=== PATIENT | male | born 1960 | race Caucasian/White ===

== ENCOUNTER 2018-03-13 01:29 | Emergency (ER) | payer MEDICARE, OTHER ==
[~2018-03-13] VITALS: Ht 177.8 cm; Wt 81.0 kg
[2018-03-13] MEDS ORDERED: LORazepam 2 mg/ml vial IV ONE (01:40)
[2018-03-13] MEDS ORDERED: hydrALAZINE 20mg/ml inj. IV ONE (01:40)
[2018-03-13] MEDS ORDERED: ondansetron/PF 4mg/2ml inj IV ONE (03:05)
[2018-03-13] MEDS: labetalol 20mg/4ml (5mg/ml) syringe IV PRN ×3 (03:10→03:47)
[2018-03-13 03:13] LABS: ANION GAP 10 (8-16); BILIRUBIN,TOTAL 0.2 MG/DL (0.1-1.0); BLOOD UREA NITROGEN 16 MG/DL (7-18); CALCIUM 8.4 MG/DL (8.5-10.1); CHLORIDE 107 MMOL/L (99-107); CREATININE 0.89 MG/DL (0.60-1.10); GLUCOSE 114 MG/DL (70-104); POTASSIUM 3.3 MMOL/L (3.5-5.1); SODIUM 140 MMOL/L (135-145); TOTAL CARBON DIOXIDE 22.7 MMOL/L (24-32); eGFR 87 ML/MIN
[2018-03-13 03:14] LABS: ALANINE AMINOTRANSFERASE 48 U/L (12-78); ALBUMIN 3.7 G/DL (3.4-5.0); ALKALINE PHOSPHATASE 95 IU/L (46-116); ASPARTATE AMINO TRANSFERASE 29 U/L (10-37); TOTAL PROTEIN 7.3 G/DL (6.4-8.2)
[2018-03-13 03:21] LABS: MAGNESIUM 2.1 MG/DL (1.5-2.4)
[2018-03-13] MEDS ORDERED: potassium Cl 20 mEq SR tablet PO ONE (03:35)
[2018-03-13 04:02] VITALS: BP 125/85
== END 2018-03-13 04:05 | disposition home or self-care (01) ==
LOC: ER 01:29
DX: I10 Essential (primary) hypertension (principal)
CPT/HCPCS: 36415; 80053; 83735; 83880; 84484; 96374; 96375; 99285; J0360; J2060; J2405; J3490

== ENCOUNTER 2018-03-13 21:35 | Emergency (ER) | payer MEDICARE, OTHER ==
[~2018-03-13] VITALS: Ht 152.4 cm; Wt 74.9 kg
[2018-03-13] MEDS ORDERED: LORazepam 2 mg/ml vial IV ONE (22:25)
[2018-03-13] MEDS: labetalol 20mg/4ml (5mg/ml) syringe IV PRN ×2 (22:54→23:37)
[2018-03-13] MEDS ORDERED: hydrALAZINE 20mg/ml inj. IV ONE (23:30)
[2018-03-13 23:58] VITALS: BP 159/96
== END 2018-03-14 00:51 | disposition home or self-care (01) ==
LOC: ER 21:36
DX: I10 Essential (primary) hypertension (principal)
CPT/HCPCS: 96374; 96375; 96376; 99284; J0360; J2060; J3490

== ENCOUNTER 2018-03-23 00:16 | Emergency (ER) | payer MEDICARE, OTHER ==
[~2018-03-23] VITALS: Ht 177.8 cm; Wt 82.7 kg
[~2018-03-23 00:16] MED LIST: AMLO5TAB21 PO; CLON-529 PO; LISI-600 PO
[2018-03-23] MEDS ORDERED: LORazepam 1 MG tablet PO ONE (01:05)
[2018-03-23] MEDS ORDERED: LORA1TAB PO (02:11)
[2018-03-23 02:18] VITALS: BP 155/96
== END 2018-03-23 02:23 | disposition home or self-care (01) ==
LOC: ER 00:17
DX: I10 Essential (primary) hypertension (principal); F41.9 Anxiety disorder, unspecified; Z79.899 Other long term (current) drug therapy
CPT/HCPCS: 99283

== ENCOUNTER 2023-02-19 16:27 | Emergency (ER) | payer MEDICARE ==
[~2023-02-19] VITALS: Ht 177.8 cm; Wt 90.0 kg
[~2023-02-19 16:27] MED LIST changes: -LISI-600 PO; +LISI20TA28 PO
[2023-02-19 16:30] VITALS: BP 124/73
[2023-02-19 17:04] LABS: CLARITY,URINE CLEAR (Clear); COLOR,URINE YELLOW (Yellow); GLUCOSE, URINE NEGATIVE (Neg); KETONES,URINE 15 mg/dl (Neg); LEUKOCYTE ESTERASE ,URINE NEGATIVE (Neg); NITRITES, URINE NEGATIVE (Neg); OCCULT BLOOD,URINE NEGATIVE (Neg); PROTEIN,URINE NEGATIVE (Neg); UROBILINOGEN,URINE 0.2 E.U/dL (0.2-1.0)
[2023-02-19 17:05] LABS: UA COLLECTION TYPE CLN CATCH MIDSTREAM
[2023-02-19 17:08] LABS: BASOPHILS % (AUTO) 0.3 % (0-1); EOSINOPHILS % (AUTO) 0.1 % (0-6); HEMATOCRIT 45.6 % (42.0-52.0); HEMOGLOBIN 15.4 g/dl (14.0-17.9); LYMPHOCYTES # (AUTO) 1.5 X10'3 (1.1-4.8); LYMPHOCYTES % (AUTO) 12.1 % (21-51); MEAN CORPUSCULAR HGB CONC 33.8 g/dL (33.0-36.5); MEAN CORPUSCULAR VOLUME 91.7 FL (78-98); MEAN PLATELET VOLUME 9.9 FL (7.4-10.4); MONOCYTES # (AUTO) 0.4 X10'3 (0-0.9); MONOCYTES % (AUTO) 3.1 % (2-12); NEUTROPHILS # (AUTO) 10.1 X10'3 (1.8-7.7); NEUTROPHILS % (AUTO) 84.4 % (42-75); PLATELET COUNT 254 X10'3 (140-440); RED BLOOD COUNT 4.98 X10'6 (4.70-6.10); RED CELL DISTRIBUTION WIDTH 13.8 % (11.5-14.5)
[2023-02-19 17:22] LABS: ALANINE AMINOTRANSFERASE 62 U/L (12-78); ALKALINE PHOSPHATASE 111 IU/L (46-116); ANION GAP 11 (8-16); ASPARTATE AMINO TRANSFERASE 24 U/L (10-37); BILIRUBIN,TOTAL 0.4 MG/DL (0.1-1.0); BLOOD UREA NITROGEN 17 MG/DL (7-18); CHLORIDE 102 MMOL/L (99-107); CREATININE 1.21 MG/DL (0.60-1.10); GLUCOSE 149 MG/DL (70-104); LIPASE 108 U/L (73-393); POTASSIUM 3.9 MMOL/L (3.5-5.1); SODIUM 138 MMOL/L (135-145); TOTAL CARBON DIOXIDE 24.7 MMOL/L (24-32); TOTAL PROTEIN 7.9 G/DL (6.4-8.2); eGFR 60 ML/MIN
[2023-02-19] MEDS ORDERED: ringers solution, lacted 1,000 ML IV ONE (19:50)
[2023-02-19] MEDS ORDERED: AMOX-117 PO (21:59)
[2023-02-19] MEDS ORDERED: amox tr/potassium clavulanate 875/125mg TAB PO ONE (22:00)
== END 2023-02-19 22:35 | disposition home or self-care (01) ==
LOC: ER 16:28
DX: K52.9 Noninfective gastroenteritis and colitis, unspecified (principal); I10 Essential (primary) hypertension
CPT/HCPCS: 36415; 74176; 80053; 81003; 83690; 85025; 96360; 96361; 99284; J7120